=== PATIENT | female | born 1970 ===

== ENCOUNTER 2021-11-16 22:28 | Emergency (ER) | payer MEDICAID ==
[2021-11-16] MEDS ORDERED: Ondansetron 4 MG Tab.DIS PO ONE (22:29)
[2021-11-16] MEDS ORDERED: Sodium Chloride 0.9% 10 ML Syringe FLUSH PRN (23:01)
[2021-11-16] MEDS ORDERED: Ondansetron 4 MG/2 ML SDV IVPUSH ONE (23:02)
[2021-11-16] MEDS ORDERED: Ketorolac 30 MG/ML SDV IVPUSH ONE (23:02)
[2021-11-16] MEDS ORDERED: Sodium Chloride 0.9% 1,000 ML IV ONE (23:04)
[2021-11-16 23:33] LABS: ANION GAP 14.7 mEq/L (7-13)
[2021-11-17] MEDS ORDERED: Dexamethasone 4 MG/ML SDV IVPUSH ONE (00:33)
[2021-11-17] MEDS ORDERED: Ondansetron 4 MG Tab.DIS PO SCH (01:45)
== END 2021-11-17 02:07 | disposition home or self-care (01) ==
LOC: DL.ED 22:28
DX: G43.909 Migraine, unspecified, not intractable, without status migrainosus (principal); E78.00 Pure hypercholesterolemia, unspecified; I10 Essential (primary) hypertension; E11.9 Type 2 diabetes mellitus without complications
CPT/HCPCS: 36415; 80053; 81003; 82947; 83735; 85025; 93010; 96361; 96374; 96375; 99283-25; 99284; A9270-GY; J1100; J1885; J2405; J3490; J7030